=== PATIENT | female | born 1990 | race Caucasian/White ===

== ENCOUNTER → 2016-10-18 | Outpatient (CLI) | payer SELFPAY | LOC: MOB LAB 14:50 | PROVIDERS: ATTEND Physician Assistant | DX: R30.0 Dysuria (principal); N89.8 Other specified noninflammatory disorders of vagina | CPT/HCPCS: 87088; 87210 ==

== ENCOUNTER → 2016-11-15 | Outpatient (CLI) | payer SELFPAY ==
[2016-11-15 12:13] LABS: BILIRUBIN,URINE NEGATIVE (NEG); CLARITY,URINE CLEAR (CLEAR); GLUCOSE, URINE (UA) NEGATIVE (NEG); LEUKOCYTE ESTERASE ,URINE NEGATIVE (NEG); NITRATE,URINE NEGATIVE (NEG); OCCULT BLOOD,URINE SMALL (NEG); PROTEIN,URINE NEGATIVE (NEG); UROBILINOGEN,URINE 0.2 mg/dL (0.2)
[2016-11-15 13:11] LABS: BACTERIA,URINE MODERATE; RBC,URINE 0-2 /hpf; SQUAMOUS EPITHELIAL CELL,UR RARE; URINE SAMPLE TYPE VOIDED SPECIMEN
== END ==
LOC: MOB LAB 10:49
PROVIDERS: ATTEND Family Medicine
DX: N89.8 Other specified noninflammatory disorders of vagina (principal); R30.0 Dysuria
CPT/HCPCS: 81001; 87480; 87491; 87510; 87591; 87660

== ENCOUNTER 2017-03-31 12:40 | Emergency (ER) | payer SELFPAY ==
[2017-03-31] MEDS ORDERED: Pantoprazole Inj 40 MG in Normal Saline Flush 10 ML IVP ONE (12:42)
[2017-03-31] MEDS ORDERED: NORMAL SALINE 10 ML SYRINGE FLUSH IVP PRN (12:42)
[2017-03-31] MEDS ORDERED: Prochlorperazine Edisylate Inj 10mg/2ml vial IVP ONE (12:42)
[2017-03-31] MEDS ORDERED: Sodium Chloride 0.9% 1,000 ML PRIMARY IV ONE (12:42)
[2017-03-31] MEDS ORDERED: diphenhydrAMINE 50 MG/1 ML VIAL IVP ONE (12:43)
--- NOTE | 2017-03-31 13:03 | PDOC ---
Abdomen/Flank HPI - General Chief Complaint: Nausea / Vomiting / Diarrhea Stated Complaint: VOMITTING Date Seen by Provider: 03/31/17 Time Seen by Provider: 12:43 Source: POSITIVE: Patient Exam Limitations: POSITIVE: No limitations Nurse's Notes Reviewed & Considered: Yes - History of Present Illness Initial Comments: The patient is a 27-year-old female who presents to the emergency department with complaints of epigastric abdominal pain, nausea and vomiting that started this morning. She states that she has not been able to eat or drink anything this morning and now feels dehydrated. She also has associated headache. She states that she is prone to headaches and has migraines. She also gets dehydrated "very easy". She states that she has been taking a fair amount of ibuprofen secondary to recent headaches. She also does drink soda and coffee. She does not take any prescription medications. She has had previous hysterectomy is her only abdominal surgery. She states that the pain in the epigastric region is about a 3 out of 10 and does radiate through to her back at times. She states that she does drink alcohol occasionally and did drink last night. She denies fevers or chills, change in bowel movements, hematemesis or any other associated complaints. - Patient Home Medications Home Medications: Home Medications Ciprofloxacin HCl [Cipro HCl] 500 mg PO Q12H #10 tab 03/31/17 Omeprazole 20 mg PO DAILY #20 cap 03/31/17 Ondansetron Odt [Zofran Odt] 8 mg PO Q6H PRN #10 tab.rapdis 03/31/17 - Patient Allergies Allergies/Adverse Reactions: Allergies Allergy/AdvReac Type Severity Reaction Status Date / Time amoxicillin trihydrate AdvReac Intermediate NAUSEA Verified 03/31/17 12:48 [From Augmentin] potassium clavulanate AdvReac Mild NAUSEA Verified 03/31/17 12:48 [From Augmentin] Past Medical History - heen HEENT History: Denies History Cardiovascular History: Denies History Respiratory History: Denies History Gastrointestinal History: Denies History Genitourinary History: Recurrent UTI, Kidney Stones Endocrine History: Denies History Musculoskeletal History: Denies History Prosthesis or Implant: No Neurological History: Migraines Blood Disorders: Denies History Psychiatric History: Denies History History of Sexually Transmitted Diseases: No Cancer History: Denies History History of MDRO: No History of Other Communicable Diseases: No Alcohol Use: None Substance Use Type: None Previous Surgical History: Yes Type / Date of Surgery: [id number]&A-2006 [id number]-2012 Anesthesia Reactions: No Malignant Hyperthermia: No Significant Family History: Heart disease, Hypertension, Vascular disease Past Medical History Reviewed: Reviewed - No Changes ROS - Limitations ROS Limitations: No Limitations Constitution: DENIES: Chills, Fever Cardiovascular: REPORTS: Denies Cardiac Symptoms Respiratory: REPORTS: Denies Resp Symptoms Neurological: REPORTS: Headache. DENIES: Numbness, Weakness Gastrointestinal: REPORTS: Abdominal Pain, Nausea, Vomitting. DENIES: Diarrhea , Black Stools, Bloody Stools, Constipation Endocrine: REPORTS: Denies Symptoms Musculoskeletal: REPORTS: Denies MS Symptoms Genitourinary: REPORTS: Denies Symptoms Eyes: REPORTS: Denies Symptoms ENT: REPORTS: Denies Symptoms Skin: DENIES: Rash Abdominal/Flank Pain PE - General Appearance General Appearance: POSITIVE: Alert, Cooperative, No Acute Distress - HEENT HEENT: POSITIVE: Head Inspection Nml, Eyes Inspection Nml, Ears Inspection Nml, Nose Inspection Nml, Pharynx Inspect. Nml, PERRL, EOMI - Neck Neck: POSITIVE: Normal Inspection. NEGATIVE: Lymphadenopathy - Respiratory Respiratory: POSITIVE: No Respiratory Distress, Breath Sounds Normal - Cardiovascular Cardiovascular: POSITIVE: Regular Rate and Rhythm, Heart Sounds Normal Peripheral Pulses: Dorsalis-pedis (R): 2+, Dorsalis-pedis (L): 2+ - Abdomen Abdomen: Soft: (All Quadrants), Normal Bowel Sounds: (All Quadrants), No Guarding: (All Quadrants), No Rebound: (All Quadrants), No Distention: (All Quadrants) Additional Abdominal Details: She is tender in the epigastric region without guarding or rebound tenderness, no left upper quadrant or right upper quadrant tenderness - Back Back: POSITIVE: Normal Inspection. NEGATIVE: CVA Tenderness (R), CVA Tenderness (L) - Skin Skin: POSITIVE: Intact, No Rash - Extremities Extremity: Normal ROM: (All Extremities), Normal Inspection: (All Extremities) - Neurological Neurological: POSITIVE: Oriented X3, Motor Normal, Sensation Normal, Other (No focal neurologic deficits) Abdomen Progress - Results Reviewed by me Lab Results Reviewed: Yes Lab Results:: Laboratory Results 03/31/17 03/31/17 Range/Units 13:17 14:06 WBC 11.04 H (4.8-10.8) 10^3/uL RBC 5.23 (4.20-5.40) 10^6/uL Hgb 16.4 H (12.0-16.0) g/dL Hct 47.5 H (37.0-47.0) % MCV 90.8 (81-99) FL MCH 31.4 H (27-31) PG MCHC 34.5 (33-37) g/dL RDW Std Deviation 41.2 (39-50) fL RDW Coeff of Darlene 12.6 (11.5-14.5) % Plt Count 225 (140-350) 10*3/uL MPV 10.9 (7.4-12.2) FL Immature Gran % (Auto) 0.5 (0-5) % Neut % (Auto) 84.4 H (50-80) % Lymph % (Auto) 10.6 (10-50) % [place] % (Auto) 3.9 L (5-15) % Eos % (Auto) 0.2 (0-8) % Baso % (Auto) 0.4 (0-1) % Immature Gran # (Auto) 0.05 10*3/UL Neut # (Auto) 9.33 10*3/UL Lymph # (Auto) 1.17 10*3/uL [place] # (Auto) 0.43 (0.3-0.8) 10*3/UL Eos # (Auto) 0.02 10*3/UL Baso # (Auto) 0.04 10*3/UL WBC Morphology Comment Normal morphology (NORM) Plt Morphology Comment Normal morphology (NORM) RBC Morph Comment Normal morphology (NORM) Sodium 146 H (135-145) meq/L Potassium 3.9 (3.8-5.2) meq/L Chloride 107 (98-112) meq/L Carbon Dioxide 22 L (23-33) meq/L Anion Gap 17 (5-20) BUN 9 (7-22) mg/dL Creatinine 0.8 (0.50-1.20) mg/dL Estimated GFR > 60 (>60 ml/min/1.73m(2)) BUN/Creatinine Ratio 11.25 (6-20) Glucose 93 (78-110) mg/dL Calculated Osmolality 300.0 H (267-292) mOsm/kg Calcium 9.7 (8.7-10.7) mg/dL Total Bilirubin 0.7 (0.3-1.2) mg/dL AST 39 (8-39) IU/L ALT 30 (9-52) IU/L Alkaline Phosphatase 85 (38-126) IU/L C-Reactive Protein < 0.5 (0.0-0.9) mg/dL Total Protein 8.6 H (6.1-8.0) g/dL Albumin 5.3 H (3.5-4.8) g/dL Globulin 3.3 (2.50-4.10) g/dL Albumin/Globulin Ratio 1.60 (1.3-2.0) mg/g Amylase 60 (30-110) U/L Lipase 43 (23-300) IU/L Ur Collection Type Clean catch urine Urine Color Yellow Urine Clarity Cloudy (CLEAR) Urine pH 7.5 (5.0-8.5) Ur Specific [place] 1.020 (1.005-1.030) Urine Protein Trace (NEG) mg/dl Urine Glucose (UA) Negative (NEG) mg/dL Urine Ketones Negative (NEG) Urine Occult Blood Small H (NEG) Urine Nitrate Positive H (NEG) Urine Bilirubin Negative (NEG) Urine Urobilinogen 1.0 (0.2) EU/dL Ur Leukocyte Esterase Negative (NEG) Urine RBC 1-3 (NONE) /hpf Urine WBC 4-6 (NONE) Ur Squamous Epith Cells Rare (NONE) Ur Renal Epithelial Cell None (NONE) Urine Crystals None Urine Bacteria Many (NONE) Urine Casts None (NONE) Urine Mucus None (NONE) Urine Trichomonas None (NONE) Urine Yeast None (NONE) Ur Culture Indicated? Culture set - Patient's Progress MDM / ED Course: An IV was established and she received 1 L bolus of normal saline as well as Compazine 5 mg, Benadryl 25 mg IV for treatment of nausea and headache. In addition she was given Protonix 40 mg IV. After administration of fluids and medications the patient was feeling substantially better. Her headache improved from a 20 out of 10 down to a 3 out of 10. Her abdominal pain also basically resolved. Her nausea was improved and she was able to tolerate drinking water here without any further emesis. She does report that she has been taking a fair amount of ibuprofen related to recent headaches. I think it is possible that she has some gastritis or ulcer secondary to NSAID use. She was started on omeprazole 20 mg daily. Advised to limit NSAID and caffeine. She was also prescribed Zofran as needed for nausea or vomiting. In addition her urinalysis did reveal some leukocytes and positive nitrite. Urine culture is pending. She was started on Cipro 500 mg twice a day for 5 days. She is advised return to the emergency room if she develops worsening pain, vomiting or dehydration, any worsening or change in symptoms. She is advised follow-up with primary care in 5-7 days. - Consult Counseled: POSITIVE: Patient, RE: Lab Results, RE: DX, RE: Need for F/U Patient Care Time - Estimated PCT Patient Care Time (In Minutes): 35 Vital Signs - Recent Vital Signs Vital Signs: Vital Signs (Last 8 hours) Temp Pulse Pulse Pulse Pulse Resp BP 03/31/17 12:57 85 99 96 117/87 03/31/17 12:41 97.1 F 85 16 BP BP BP Pulse Ox 03/31/17 12:57 131/89 117/95 03/31/17 12:41 117/87 98 - VS Reviewed Vital Signs Reviewed: Yes Discharge Clinical Impression: Gastritis, UTI (urinary tract infection), Dehydration, Nausea and vomiting Discharge Disposition: Discharged to Home Condition: Fair Prescriptions / Orders: Ciprofloxacin HCl [Cipro HCl] 500 mg PO Q12H #10 tab Omeprazole 20 mg PO DAILY #20 cap Ondansetron Odt [Zofran Odt] 8 mg PO Q6H PRN #10 tab.rapdis PRN Reason: Nausea / Vomiting Patient Instructions Given at Discharge: Gastritis (ED), Dehydration (ED), Urinary Tract Infection in Women (ED) Follow Up With: VLAD RHOADES [Primary Care Provider] -
[2017-03-31 13:28] LABS: BASOPHILS # (AUTO) 0.04 10*3/UL; BASOPHILS % (AUTO) 0.4 % (0-1); EOSINOPHILS # (AUTO) 0.02 10*3/UL; EOSINOPHILS % (AUTO) 0.2 % (0-8); HEMATOCRIT 47.5 % (37.0-47.0); HEMOGLOBIN 16.4 g/dL (12.0-16.0); LYMPHOCYTES # (AUTO) 1.17 10*3/uL; MEAN CORPUSCULAR HEMOGLOBIN 31.4 PG (27-31); MEAN CORPUSCULAR HGB CONC 34.5 g/dL (33-37); MEAN CORPUSCULAR VOLUME 90.8 FL (81-99); MEAN PLATELET VOLUME 10.9 FL (7.4-12.2); MONOCYTES # (AUTO) 0.43 10*3/UL (0.3-0.8); MONOCYTES % (AUTO) 3.9 % (5-15); NEUTROPHILS # (AUTO) 9.33 10*3/UL; NEUTROPHILS % (AUTO) 84.4 % (50-80); RED BLOOD COUNT 5.23 10^6/uL (4.20-5.40)
[2017-03-31 13:30] LABS: PLATELET MORPHOLOGY COMMENT NORMAL MORPHOLOGY (NORM); RBC MORPHOLOGY COMMENT NORMAL MORPHOLOGY (NORM); WBC MORPHOLOGY COMMENT NORMAL MORPHOLOGY (NORM)
[2017-03-31 13:36] LABS: BLOOD UREA NITROGEN 9 mg/dL (7-22); BUN/CREATININE RATIO 11.25 (6-20); CALCIUM 9.7 mg/dL (8.7-10.7); EST GLOMERULAR FILTRATION > 60 (>60 ml/min/1.73m(2)); LIPASE 43 IU/L (23-300); SERUM ALBUMIN 5.3 g/dL (3.5-4.8)
[2017-03-31 13:37] LABS: C-REACTIVE PROTEIN < 0.5 mg/dL (0.0-0.9)
[2017-03-31 13:56] VITALS: RESP 16; TEMP 97.1
[2017-03-31 14:11] LABS: BILIRUBIN,URINE NEGATIVE (NEG); COLOR,URINE YELLOW; GLUCOSE, URINE (UA) NEGATIVE (NEG); NITRATE,URINE POSITIVE (NEG); OCCULT BLOOD,URINE SMALL (NEG); PH,URINE 7.5 (5.0-8.5); PROTEIN,URINE TRACE mg/dl (NEG)
[2017-03-31 14:16] LABS: CLARITY,URINE CLOUDY (CLEAR); SQUAMOUS EPITHELIAL CELL,UR RARE; URINE SAMPLE TYPE CLEAN CATCH URINE
[2017-03-31 14:17] LABS: BACTERIA,URINE MANY
== END 2017-03-31 15:05 | disposition home or self-care (01) ==
LOC: ER 12:40
DX: K29.70 Gastritis, unspecified, without bleeding (principal); N39.0 Urinary tract infection, site not specified; E86.0 Dehydration; R11.2 Nausea with vomiting, unspecified; R51 Headache; R10.13 Epigastric pain
CPT/HCPCS: 80053; 81001; 81003; 82150; 83690; 85025; 86140; 87077; 87088; 87186 ×2; 96361; 96374; 96375; 99283 ×2; J1200; J0780; J3490; J7030